=== PATIENT | female | born 1995 | race Two or more races ===

== ENCOUNTER 2024-11-23 19:41 | Emergency (ER) | payer OTHER ==
[~2024-11-23] VITALS: Ht 165.1 cm; Wt 62.6 kg
[2024-11-23] MEDS ORDERED: LEXAPRO20 MG PO (20:38)
[2024-11-23] MEDS ORDERED: HYOSCYAMINE SULFATE 0.125 MG TAB.SUBL SL ONE (21:45)
[2024-11-23 22:02] LABS: HEMATOCRIT 35.8 % (36.0-45.00); HEMOGLOBIN 12.3 g/dL (12.0-15.00); MEAN CELL VOLUME 89.2 fL (80.00-100.00); MEAN CORPUSCULAR HEMOGLOBIN 30.7 pg (27.00-32.0); MEAN CORPUSCULAR HGB CONC 34.4 g/dl (32.0-36.0); PLATELET COUNT 277 K/uL (150-450); RED BLOOD COUNT 4.02 M/uL (4.00-6.00); RED CELL DISTRIBUTION WIDTH 12.8 % (11.5-14.5)
[2024-11-23 22:21] LABS: CALCIUM 8.9 mg/dL (8.5-10.1); CREATININE SERUM 0.71 mg/dL (0.55-1.02); GFR 96.01; POTASSIUM 3.45 mEq/L (3.5-5.1)
== END 2024-11-24 02:19 | disposition home or self-care (01) ==
LOC: ER 19:43
DX: K30 Functional dyspepsia (principal); R10.9 Unspecified abdominal pain